=== PATIENT | female | born 1985 | race Caucasian/White ===

== ENCOUNTER 2016-04-20 23:16 | Emergency (ER) | payer OTHER ==
[~2016-04-20] VITALS: Ht 165.1 cm; Wt 59.0 kg
[2016-04-20 23:16] VITALS: BP 140/81
[2016-04-20] MEDS ORDERED: ACETAMINOPHEN ES 500 MG TABLET ONE (23:58)
[2016-04-21] MEDS ORDERED: ACETAMINOPHEN 325 MG TABLET PO ONE
== END 2016-04-21 00:07 | disposition home or self-care (01) ==
LOC: ER 23:18
DX: S80.12XA Contusion of left lower leg, initial encounter (principal); S80.11XA Contusion of right lower leg, initial encounter; S40.022A Contusion of left upper arm, initial encounter; S40.021A Contusion of right upper arm, initial encounter; S90.512A Abrasion, left ankle, initial encounter; V03.99XA Pedestrian with other conveyance injured in collision with car, pick-up truck or van, unspecified whether traffic or nontraffic accident, initial encounter; Y93.89 Activity, other specified; Y92.413 State road as the place of occurrence of the external cause; Y99.8 Other external cause status
CPT/HCPCS: 99283; A4606; Z7610

== ENCOUNTER 2016-05-12 04:32 | Emergency (ER) | payer OTHER ==
[~2016-05-12] VITALS: Ht 162.6 cm; Wt 59.0 kg
--- NOTE | 2016-05-12 06:06 | NUR ---
PT AMBULATORY TO ER BED 6 C/O NAUSEA, ON AND OFF CHILLS, JAW AND NECK PAIN X 2 DAYS. PT AOX3 RR EVEN AND UNLABORED. NO SOB NOTED. NAD NOTED. NO NVD AT THIS TIME. PT NOT DIAPHORETIC. PT PLACED ON MONITOR WAITING FOR MD COMER.
--- NOTE | 2016-05-12 06:13 | NUR ---
DR. DIAZ AT BEDSIDE FOR EVAL.
[2016-05-12] MEDS ORDERED: IV SET PRIMARY 1 EA INFUS.SET MC ONE (06:23)
[2016-05-12] MEDS ORDERED: METOCLOPRAMIDE HCL 10 MG/2 ML VIAL ONE (06:23)
[2016-05-12] MEDS ORDERED: KETOROLAC TROMETHAMINE INJ 30 MG/ML VIAL ONE (06:23)
[2016-05-12] MEDS ORDERED: IV NS 0.9% 1,000 ML ONE (06:23)
[2016-05-12] MEDS ORDERED: IV NS 0.9% 1,000 ML IV ONE (06:30)
[2016-05-12] MEDS ORDERED: METOCLOPRAMIDE HCL 10 MG/2 ML VIAL IV ONE (06:30)
[2016-05-12] MEDS ORDERED: KETOROLAC TROMETHAMINE INJ 30 MG/ML VIAL IV ONE (06:30)
[2016-05-12 07:11] VITALS: BP 129/62
--- NOTE | 2016-05-12 07:12 | NUR ---
Patient discharged to home in stable condition. Written and verbal after care instructions given. Patient verbalizes understanding of instruction.IV removed. Catheter intact and site benign. Pressure and 4x4 applied to site. No bleeding noted. ambulatory with a steady gait. no further complaints.
== END 2016-05-12 07:12 | disposition home or self-care (01) ==
LOC: ER 04:34
DX: R51 Headache (principal); R68.84 Jaw pain
CPT/HCPCS: 96361; 96374; 96375; 99284; A4606; J1885; J2765; J7030; Z7610

== ENCOUNTER 2017-02-16 01:20 | Emergency (ER) | payer OTHER ==
[~2017-02-16] VITALS: Ht 162.6 cm; Wt 59.0 kg
--- NOTE | 2017-02-16 02:38 | NUR ---
PT AMBULATORY TO ER BED 6. PT BIB SELF C/O "MIGRAINE" X 1 DAY WITH NAUSEA. PT PLACED IN GOWN AND ON WASTE PICKER. VSS/RESP EVEN UNLABORED/NAD NOTED/SKIN WARM AND DRY/AOX4. AWAITING MD COMER.
[2017-02-16] MEDS ORDERED: diphenhydrAMINE HCL 50 MG/ML VIAL ONE (02:42)
[2017-02-16] MEDS ORDERED: METOCLOPRAMIDE HCL 10 MG/2 ML VIAL ONE (02:42)
[2017-02-16] MEDS ORDERED: diphenhydrAMINE HCL 50 MG/ML VIAL IV ONE (03:00)
[2017-02-16] MEDS ORDERED: METOCLOPRAMIDE HCL 10 MG/2 ML VIAL IV ONE (03:00)
--- NOTE | 2017-02-16 03:01 | NUR ---
20G IV TO THE L AC X 1 ATTEMPT USING ASEPTIC TECH. IV FLUSHES EASILY WITH NS.
--- NOTE | 2017-02-16 04:20 | NUR ---
IV removed. Catheter intact and site benign. Pressure and 4x4 applied to site. No bleeding noted. Patient discharged with friend to home in stable condition. Written and verbal after care instructions given, patient instructed not to drive. Patient verbalizes understanding of instruction. Patient ambulatory with a steady gait.
[2017-02-16 04:57] VITALS: BP 123/76
== END 2017-02-16 04:20 | disposition home or self-care (01) ==
LOC: ER 01:24
DX: G43.909 Migraine, unspecified, not intractable, without status migrainosus (principal)
CPT/HCPCS: 96374; 96375; 99284; A4606; J1200; J2765; Z7610

== ENCOUNTER 2020-09-16 01:57 | Inpatient (IN) | payer OTHER ==
[~2020-09-16] VITALS: Ht 162.6 cm; Wt 58.3 kg
--- NOTE | 2020-09-16 02:01 | NUR ---
PT AAOX4. 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 -DIARRHEA -N/V. PLACED IN BED 10 ON MONITOR AND PULSE OX. VSS. AWAITING ER MD FOR EVAL AND ORDERS.
[2020-09-16 02:24] LABS: BILIRUBIN,URINE Negative (NEGATIVE); COLOR,URINE YELLOW (YELLOW); LEUKOCYTE ESTERASE ,URINE Negative (NEGATIVE); NITRITE, URINE Negative (NEGATIVE); PH,URINE 7.5 (5.0-8.0); PROTEIN,URINE Negative (NEGATIVE); UGLUCOSE Negative (NEGATIVE); UROBILINOGEN,URINE 0.2 EU/dL (0.2)
[2020-09-16 02:33] LABS: BASOPHILS # (AUTO) 0.1 K/uL (0.0-0.2); HEMATOCRIT 28 % (33-45); HEMOGLOBIN 9.5 g/dL (11.5-14.8); LYMPHOCYTES # (AUTO) 3.4 K/uL (0.8-4.8); LYMPHOCYTES % (AUTO) 34.9 % (20.0-44.0); MEAN CORPUSCULAR HGB CONC 33 g/dl (31.0-36.0); MEAN CORPUSCULAR VOLUME 81 fL (82-100); MONOCYTES # (AUTO) 0.6 K/uL (0.1-1.30); MONOCYTES % (AUTO) 6.5 % (2.0-12.0); NEUTROPHILS # (AUTO) 5.6 K/uL (1.8-8.9); NEUTROPHILS % (AUTO) 57.6 % (43.0-81.0); PLATELET COUNT (AUTO) 809 K/uL (150-450); WHITE BLOOD COUNT (AUTO) 9.7 K/uL (4.3-11.0)
[2020-09-16 02:42] LABS: BACTERIA,URINE None seen /HPF (None Seen); RBC,URINE 0-2 /HPF (0-2); SQUAMOUS EPITHELIAL CELL,UR Few /HPF (None Seen); URINE AMORPHOUS PHOSPHATES Moderate /HPF (None Seen); WBC,URINE 0-2 /HPF (0-3)
[2020-09-16 02:43] LABS: CALCIUM, SERUM 8.9 mg/dL (8.5-10.1); CARBON DIOXIDE 25 mmol/L (21-32); CHLORIDE 102 mmol/L (98-107); CREATININE 0.9 mg/dL (0.6-1.3); GLUCOSE 93 mg/dL (74-106); POTASSIUM 3.7 mmol/L (3.5-5.1); SODIUM SERUM 138 mmol/L (136-145); UREA NITROGEN, BLOOD 18 mg/dL (7-18)
[2020-09-16 02:46] LABS: ALANINE AMINOTRANSFERASE 65 U/L (12-78); ALBUMIN 3.2 g/dL (3.4-5.0); ALKALINE PHOSPHATASE 192 U/L (46-116); ASPARTATE AMINOTRANSFERASE 39 U/L (15-37); BILIRUBIN,DIRECT 0.1 mg/dL (0.0-0.2); BILIRUBIN,TOTAL 0.1 mg/dL (0.2-1.0); LIPASE 1094 U/L (73-393); TOTAL PROTEIN, SERUM 7.3 g/dL (6.4-8.2)
[2020-09-16] MEDS ORDERED: MORPHINE SULFATE INJ 4 MG/ML DISP.SYRIN ONE (02:52)
[2020-09-16] MEDS ORDERED: ONDANSETRON HCL/PF 4 MG/2 ML VIAL ONE (02:52)
[2020-09-16] MEDS ORDERED: ONDANSETRON HCL/PF 4 MG/2 ML VIAL IV ONE (03:00)
[2020-09-16] MEDS ORDERED: MORPHINE SULFATE INJ 2 MG/ML DISP.SYRIN IV ONE (03:00)
[2020-09-16] MEDS ORDERED: DULO60CA45 PO (04:24)
[2020-09-16] MEDS ORDERED: METH18TA PO (04:24)
[2020-09-16] MEDS ORDERED: GABA-532 PO (04:24)
[2020-09-16] MEDS ORDERED: UBID100C13 PO (04:24)
[2020-09-16] MEDS ORDERED: VALA100026 PO (04:24)
[2020-09-16] MEDS ORDERED: TIZA4TAB5 PO (04:24)
[2020-09-16] MEDS ORDERED: CETI-194 PO (04:24)
[2020-09-16] MEDS ORDERED: OMEP20TA20 PO (04:24)
[2020-09-16] MEDS ORDERED: CYAN50009 PO (04:24)
--- NOTE | 2020-09-16 05:03 | NUR ---
[facility] PAGED FOR ADMISSION.
[2020-09-16] MEDS ORDERED: ONDANSETRON HCL/PF 4 MG/2 ML VIAL IVP PRN (05:30)
[2020-09-16] MEDS ORDERED: MAGNESIUM HYDROXIDE 30 ML UDC PO PRN (05:30)
[2020-09-16] MEDS ORDERED: MAG HYDROX/AL HYDROX/SIMETH 30 ML UDC PO PRN (05:30)
[2020-09-16] MEDS ORDERED: IV D5/0.45 NACL 1,000 ML IV PRN (05:30)
[2020-09-16] MEDS ORDERED: ACETAMINOPHEN 325 MG TABLET PO PRN (05:30)
[2020-09-16] MEDS ORDERED: PIPERACILLIN /TAZOBACTAM 3.375 G in IV D5W 50 ML IV ONE (05:30)
[2020-09-16] MEDS ORDERED: Z GUARD REMEDY 2 OZ OINT TP PRN (05:30)
[2020-09-16] MEDS ORDERED: PIPERACILLIN /TAZOBACTAM 3.375 G VIAL IV ONE (05:49)
--- NOTE | 2020-09-16 06:28 | NUR ---
315-1 GIVE REPORT AFTER SHIFT
--- NOTE | 2020-09-16 07:46 | NUR ---
REPORT GIVEN TO LIBBY SMITH FOR CHUCK.
--- NOTE | 2020-09-16 08:10 | NUR ---
RN NOTE RECEIVED REPORT FROM SARAH MASSEY. PT WAS BROUGHT VIA WHEELCHAIR. VS BP 120/84 MS 89 RR 18 T 97.9 SA02 99% PT IS A/O X4. ON ROOM AIR, TOLERATING WELL. NO SOB NOTED. IN NO APPARENT DISTRESS. DENIES ANY PAIN OR DISCOMFORT AT THIS TIME. IV ACCESS ON R AC #20G, INTACT AND PATENT. SAFETY MEASURES MAINTAINED. BED IN LOWEST POSITION, BRAKES LOCKED. SIDE RAILS UP X2. CALL LIGHT WITHIN REACH. WILL CONTINUE PLAN OF CARE.
--- NOTE | 2020-09-16 08:15 | NUR ---
PATIENT TRANSFERRED TO ROOM 315-1 IN STABLE CONDITION.
[2020-09-16] MEDS: IV LR 1000 ML 1,000 ML IV SCH ×3 (10:45→21:00)
[2020-09-16] MEDS: PANTOPRAZOLE 40 MG VIAL IV SCH (11:24)
[2020-09-16] MEDS ORDERED: PIPERACILLIN /TAZOBACTAM 3.375 G in IV D5W 50 ML IV SCH (12:00)
[2020-09-16] MEDS: MORPHINE SULFATE INJ 2 MG/ML DISP.SYRIN IV PRN ×3 (13:29→23:31)
--- NOTE | 2020-09-16 18:11 | NUR ---
MS RN NOTE PT RESTING IN BED. A/O X4. AMBULATORY. NO SOB NOTED. NO S/S OF RESPIRATORY DISTRESS. IV ACCESS ON R AC #20G, LR RUNNING X 200 ML/HR, INTACT AND PATENT. ALL NEEDS HAVE BEEN MET AND ATTENDED. SAFETY MEASURES MAINTAINED. BED IN LOWEST POSITION, BRAKES LOCKED. SIDE RAILS UP X2. KEPT CALL LIGHT WITHIN REACH. WILL ENDORSE CONTINUITY OF CARE TO ONCOMING SHIFT.
--- NOTE | 2020-09-16 19:53 | NUR ---
Patient awake, A&Ox4, states her abdominal pain and tenderness is almost completely gone but she is having bad back pain from spinal fusion 2 weeks ago. No other issues at this time. has been tolerating regular diet well. Tolerating IVF well.
[2020-09-16 21:13] VITALS: BP 125/64
[2020-09-16] MEDS ORDERED: TIZANIDINE HCL 4 MG TABLET PO SCH (22:00)
[2020-09-16] MEDS ORDERED: GABAPENTIN 100 MG CAPSULE PO SCH (22:00)
[2020-09-17] MEDS: IV LR 1000 ML 1,000 ML IV SCH ×3 (01:51→11:25)
[2020-09-17] MEDS: MORPHINE SULFATE INJ 2 MG/ML DISP.SYRIN IV PRN (05:24)
[2020-09-17 05:50] LABS: BASOPHILS # (AUTO) 0.1 K/uL (0.0-0.2); BASOPHILS % (AUTO) 0.9 % (0.0-2.0); HEMATOCRIT 27 % (33-45); LYMPHOCYTES # (AUTO) 2.5 K/uL (0.8-4.8); LYMPHOCYTES % (AUTO) 30.1 % (20.0-44.0); MEAN CORPUSCULAR HGB CONC 33 g/dl (31.0-36.0); MEAN CORPUSCULAR VOLUME 81 fL (82-100); MONOCYTES # (AUTO) 0.6 K/uL (0.1-1.30); NEUTROPHILS # (AUTO) 5.1 K/uL (1.8-8.9); PLATELET COUNT (AUTO) 660 K/uL (150-450); WHITE BLOOD COUNT (AUTO) 8.2 K/uL (4.3-11.0)
[2020-09-17 06:05] LABS: CREATININE 0.9 mg/dL (0.6-1.3); PHOSPHORUS 3.5 mg/dL (2.5-4.9); POTASSIUM 4.1 mmol/L (3.5-5.1)
[2020-09-17 06:14] LABS: THYROID STIMULATING HORMONE 3.396 uIU/mL (0.358-3.74)
--- NOTE | 2020-09-17 06:22 | NUR ---
MS RN CLOSING NOTES Patient is awake A&Ox4. VSS. States that pain in abdomen has resolved but pain to lower back from spinal fusion 2 weeks ago persists -relieved with PRN Morphine. Tolerating IVF well. No other overnight issues/events. Patient is able to make needs known.
--- NOTE | 2020-09-17 07:25 | NUR ---
MS RN OPENING NOTES RECEIVED PATIENT AWAKE IN BED. ALERT AND ORIENTED X 4. NO SIGNS OR SYMPTOMS OF DISTRESS NOTED. NO COMPLAINTS OF PAIN AT THIS TIME. IV ACCESS RAC#20 PATENT AND INTACT. ON ROOM AIR, TOLERATING WELL. SAFETY MEASURES IN PLACE WITH BED AT LOWEST POSITION AND SIDE RAILS UP X 2. CALL LIGHT IS WITHIN REACH. WILL CONTINUE TO MONITOR THROUGHOUT SHIFT.
[2020-09-17] MEDS ORDERED: VALACYCLOVIR HCL 500 MG TABLET PO SCH (09:00)
[2020-09-17] MEDS ORDERED: cetrizine 10 MG TABLET PO SCH (09:00)
[2020-09-17] MEDS ORDERED: DULOXETINE HCL 30 MG CAPSULE.DR PO SCH (09:00)
[2020-09-17] MEDS ORDERED: METHYLPHENIDATE HCL 18 MG PO SCH (09:00)
[2020-09-17] MEDS ORDERED: Medication Not On Formulary EA (Ubidecarenone (Coq-10) 200 MG) PO SCH (09:00)
[2020-09-17] MEDS ORDERED: CYANOCOBALAMIN 500 MCG TABLET PO SCH (09:00)
[2020-09-17] MEDS: PANTOPRAZOLE 40 MG VIAL IV SCH (09:01)
--- NOTE | 2020-09-17 12:34 | NUR ---
MS CONTACT FINGER ASSEMBLER NOTES RECEIVED DISCHARGE ORDER FOR PATIENT. PATIENT ALERT AND ORIENTED X4. NO SIGNS OR SYMPTOMS OF DISTRESS NOTED. NO COMPLAINTS OF PAIN. VITAL SIGNS STABLE. DISCHARGE SUMMARY REVIEWED WITH PATIENT AND MOTHER AT BEDSIDE, VERBALIZED UNDERSTANDING, ALL QUESTIONS ANSWERED. IV ACCESS AND ID BAND REMOVED. OBSERVED PATIENT ESCORTED OUT OF UNIT VIA WHEELCHAIR GISELLA GARCIA.
[2020-09-18] MEDS ORDERED: PANTOPRAZOLE 40 MG TABLET.DR PO SCH (07:30)
[2020-09-18] MEDS ORDERED: NORE1TAB93 PO (08:37)
[2020-09-18] MEDS ORDERED: AMPH15TA2 PO (08:37)
[2020-09-18] MEDS ORDERED: MAGN120C2 PO (08:37)
[2020-09-18] MEDS ORDERED: [UNRECOGNIZED DRUG - CODE] PO (08:37)
[2020-09-18] MEDS ORDERED: MAGN100P3 PO (08:37)
[2020-09-18] MEDS ORDERED: RIBO100T6 PO (08:37)
[2020-09-18] MEDS ORDERED: BUPR-54 PO (08:37)
[2020-09-18] MEDS ORDERED: GABA-532 PO (08:37)
== END 2020-09-17 13:00 | disposition home or self-care (01) | DRG 444 ==
LOC: ER 01:57 → MED 07:54
PROVIDERS: ADMIT Internal Medicine; ATTEND Internal Medicine
DX: K80.20 Calculus of gallbladder without cholecystitis without obstruction (principal); K85.90 Acute pancreatitis without necrosis or infection, unspecified; E87.2 Acidosis; Z20.822 Contact with and (suspected) exposure to COVID-19; F12.90 Cannabis use, unspecified, uncomplicated; D47.3 Essential (hemorrhagic) thrombocythemia; F32.9 Major depressive disorder, single episode, unspecified
CPT/HCPCS: 36415; 76705-TC; 78226; 80048-TC; 80061-TC; 80076-TC; 81001; 83605-TC; 83690-TC; 83735-TC; 84100-TC; 84443-TC; 84484-TC; 84702-TC; 84703-TC; 85025-TC; 86140-TC; 87081-TC; A9537; C9113; C9803; G0378; J2270; J2405; J2543; J3490; J7060; J7120

== ENCOUNTER 2020-09-18 06:29 | Emergency (ER) | payer OTHER ==
[~2020-09-18] VITALS: Ht 162.6 cm; Wt 58.1 kg
[~2020-09-18 06:29] MED LIST: CETI-194 PO; CYAN50009 PO; DULO60CA45 PO; GABA-532 PO; METH18TA PO; OMEP20TA20 PO; TIZA4TAB5 PO; UBID100C13 PO; VALA100026 PO
--- NOTE | 2020-09-18 06:41 | NUR ---
PT AAOX4. AMBULATORY WITH STEADY GAIT. BIBSELF C/O RUQW ABD PAIN. PLACED IN BED 4 ON MONITOR AND PULSE OX. ER MD AT BEDSIDE FOR EVAL. AWAITING ER MD FOR EVAL AND ORDERS. WILL CONTINUE TO MONITOR.
[2020-09-18] MEDS ORDERED: ONDANSETRON HCL/PF 4 MG/2 ML VIAL ONE (06:44)
[2020-09-18] MEDS ORDERED: MORPHINE SULFATE INJ 4 MG/ML DISP.SYRIN ONE (06:44)
[2020-09-18] MEDS ORDERED: IV NS 0.9% 1,000 ML BAG IV ONE (07:00)
[2020-09-18] MEDS ORDERED: MORPHINE SULFATE INJ 2 MG/ML DISP.SYRIN IV ONE (07:00)
[2020-09-18] MEDS ORDERED: ONDANSETRON HCL/PF 4 MG/2 ML VIAL IVP ONE (07:00)
[2020-09-18 08:06] LABS: BASOPHILS # (AUTO) 0.1 K/uL (0.0-0.2); HEMATOCRIT 30 % (33-45); HEMOGLOBIN 9.9 g/dL (11.5-14.8); LYMPHOCYTES # (AUTO) 2.3 K/uL (0.8-4.8); LYMPHOCYTES % (AUTO) 31.3 % (20.0-44.0); MEAN CORPUSCULAR HGB CONC 33 g/dl (31.0-36.0); MEAN CORPUSCULAR VOLUME 80 fL (82-100); MONOCYTES # (AUTO) 0.5 K/uL (0.1-1.30); MONOCYTES % (AUTO) 6.2 % (2.0-12.0); NEUTROPHILS # (AUTO) 4.5 K/uL (1.8-8.9); NEUTROPHILS % (AUTO) 61.5 % (43.0-81.0); PLATELET COUNT (AUTO) 700 K/uL (150-450); RED BLOOD CELL COUNT(AUTO) 3.75 MIL/uL (4.0-5.2); WHITE BLOOD COUNT (AUTO) 7.2 K/uL (4.3-11.0)
[2020-09-18 08:30] LABS: BILIRUBIN,URINE NEGATIVE (NEGATIVE); LEUKOCYTE ESTERASE ,URINE SMALL (NEGATIVE); NITRITE, URINE NEGATIVE (NEGATIVE); PH,URINE 5.5 (5.0-8.0); PROTEIN,URINE NEGATIVE (NEGATIVE); UGLUCOSE NEGATIVE (NEGATIVE); UROBILINOGEN,URINE 0.2 EU/dL (0.2)
--- NOTE | 2020-09-18 08:30 | NUR ---
CALLED AND LEFT A MESSAGE TO DR. VALERO
[2020-09-18 08:34] LABS: COLOR,URINE DARK YELLOW (YELLOW)
[2020-09-18] MEDS ORDERED: RIBO100T6 PO (08:37)
[2020-09-18] MEDS ORDERED: BUPR-54 PO (08:37)
[2020-09-18] MEDS ORDERED: MAGN120C2 PO (08:37)
[2020-09-18] MEDS ORDERED: GABA-532 PO (08:37)
[2020-09-18] MEDS ORDERED: [UNRECOGNIZED DRUG - CODE] PO (08:37)
[2020-09-18] MEDS ORDERED: NORE1TAB93 PO (08:37)
[2020-09-18] MEDS ORDERED: AMPH15TA2 PO (08:37)
[2020-09-18] MEDS ORDERED: MAGN100P3 PO (08:37)
--- NOTE | 2020-09-18 08:44 | NUR ---
COVID [facility]AB SENT
[2020-09-18 08:46] LABS: ALBUMIN 3.3 g/dL (3.4-5.0); BILIRUBIN,DIRECT 0.1 mg/dL (0.0-0.2); BILIRUBIN,TOTAL 0.2 mg/dL (0.2-1.0); CREATININE 0.9 mg/dL (0.6-1.3); POTASSIUM 3.7 mmol/L (3.5-5.1); TOTAL PROTEIN, SERUM 7.4 g/dL (6.4-8.2)
[2020-09-18] MEDS ORDERED: PIPERACILLIN /TAZOBACTAM 3.375 G VIAL IV ONE (08:55)
[2020-09-18] MEDS ORDERED: PIPERACILLIN /TAZOBACTAM 3.375 G in IV D5W 50 ML IV ONE (09:00)
--- NOTE | 2020-09-18 09:44 | NUR ---
CALLED [facility] AND SPOKE TO CHRISTY REGARDING TRANSFER. WANTS US TO FAX CLINICAL INFORMATIONA AND FACESHEET TO THEM SO THEY CAN PROCESS REQUEST.
--- NOTE | 2020-09-18 09:55 | NUR ---
DR. MCCLAIN FROM [facility] WAS CONNECTED FOR ACCEPTANCE. DR. MCCLAIN ACCEPTS PATIENT.
--- NOTE | 2020-09-18 10:00 | NUR ---
NO ANSWER ON FAX, WILL FAX CLINICALS AGAIN.
--- NOTE | 2020-09-18 10:25 | NUR ---
CALLED LEO LOU FROM [facility] AND CURRENTLY AWAITING COVID STATUS ON PATIENT. FAXED UPDATED COVID RESULT, JUST WAITING ON BED ASSIGNMENT.
[2020-09-18 11:43] VITALS: BP 111/65
[2020-09-18 11:55] LABS: RBC,URINE 0-2 /HPF (0-2)
[2020-09-18 11:56] LABS: BACTERIA,URINE Moderate /HPF (None Seen); SQUAMOUS EPITHELIAL CELL,UR Moderate /HPF (None Seen)
--- NOTE | 2020-09-18 12:10 | NUR ---
TRANSFER INFO RECEIVED A CALL FROM LEO LOU FROM [facility]. PT ACCEPTED TO ROOM 228-A MED/SURG. NUMBER FOR REPORT [phone]. WHEN CALLING REPORT PLEASE NOTIFY NURSE AMBULANCE ETA.
--- NOTE | 2020-09-18 12:12 | NUR ---
CALLED [facility] FOR TRANSPORT TO [facility] ETA 75-90 MINUTES.
--- NOTE | 2020-09-18 12:37 | NUR ---
REPORT GIVEN TO KATIE SMITH AT [facility]. AWAITING TRANSPORT AMBULANCE.
--- NOTE | 2020-09-18 13:56 | NUR ---
REPORT GIVEN TO SECURE SOFTWARE ASSESSOR. PATIENT A/OX4, BREATHING EVEN AND UNLABORED, C/O MILD PAIN AT THIS TIME. NO DISTRESS NOTED. PATIENT LEFT FOR [facility] IN STABLE CONDITION.
== END 2020-09-18 13:58 | disposition short-term general hospital (02) ==
LOC: ER 06:36
DX: K80.70 Calculus of gallbladder and bile duct without cholecystitis without obstruction (principal); K85.10 Biliary acute pancreatitis without necrosis or infection; D50.9 Iron deficiency anemia, unspecified; D47.3 Essential (hemorrhagic) thrombocythemia; G43.909 Migraine, unspecified, not intractable, without status migrainosus; M43.16 Spondylolisthesis, lumbar region; F41.9 Anxiety disorder, unspecified; F32.9 Major depressive disorder, single episode, unspecified; Z79.899 Other long term (current) drug therapy; Z20.822 Contact with and (suspected) exposure to COVID-19
CPT/HCPCS: 36415; 76705; 80048; 80076; 81001; 83690; 85025; 87426; 96361; 96365; 96375; 99285; C9803; J2270; J2405; J2543; J7030

== ENCOUNTER 2024-01-12 09:49 | Emergency (ER) | payer OTHER ==
[~2024-01-12] VITALS: Ht 165.1 cm; Wt 70.3 kg
[~2024-01-12 09:49] MED LIST changes: +AMPH15TA2 PO; +BUPR-54 PO; -CYAN50009 PO; +MAGN100P3 PO; +MAGN120C2 PO; -METH18TA PO; +NORE1TAB93 PO; +RIBO100T6 PO; +[UNRECOGNIZED DRUG - CODE] PO
[2024-01-12] MEDS ORDERED: LORAZEPAM 1 MG TABLET ONE (10:29)
[2024-01-12] MEDS: LORAZEPAM 1 MG TABLET PO ONE (10:29)
[2024-01-12 13:03] VITALS: BP 118/71; TEMP 98.3; O2SAT 100
== END 2024-01-12 12:30 | disposition home or self-care (01) ==
LOC: ER 10:04
DX: M79.662 Pain in left lower leg (principal); R60.0 Localized edema; F32.A Depression, unspecified; F41.9 Anxiety disorder, unspecified; G43.909 Migraine, unspecified, not intractable, without status migrainosus; Z79.624 Long term (current) use of inhibitors of nucleotide synthesis; Z79.899 Other long term (current) drug therapy; Z87.19 Personal history of other diseases of the digestive system; Z86.59 Personal history of other mental and behavioral disorders
CPT/HCPCS: 93971-TC